=== PATIENT | male | born 1955 | race African-American/Black ===

== ENCOUNTER 2017-04-15 01:39 | Emergency (ER) | payer OTHER ==
[~2017-04-15] VITALS: Ht 172.7 cm; Wt 82.0 kg
[2017-04-15] MEDS ORDERED: SODIUM CHLORIDE 0.9% 1,000 ML IV ONE (06:05)
[2017-04-15 06:50] LABS: BASOPHILS % 0.2 % (0.0-2.0); EOSINOPHILS % 0.1 % (0.0-5.0); HEMATOCRIT. 42.1 % (42.0-52.0); HEMOGLOBIN. 14.5 g/dL (14.0-18.0); LYMPHOCYTES % 17.7 % (20.0-50.0); MEAN CORPUSCULAR HEMOGLOBIN 30.7 pg (28.0-32.0); MEAN CORPUSCULAR VOLUME 88.8 fL (80.0-94.0); MEAN PLATELET VOLUME 8.4 fl (7.4-10.4); MONOCYTES % 6.6 % (2.0-8.0); NEUTROPHILS % 75.4 % (40.0-76.0); PLATELET 181 x1000/uL (130-400); RED BLOOD CELL COUNT 4.74 mill/uL (4.7-6.1); RED CELL DISTRIBUTION WIDTH 13.5 % (11.6-14.6)
[2017-04-15 07:08] LABS: CARBON DIOXIDE 30 mEq/L (21-32); CHLORIDE 103 mEq/L (98-107)
[2017-04-15 07:09] LABS: ETHANOL BLOOD 344 mg/dL
[2017-04-15] MEDS ORDERED: CALCIUM GLUCONATE 100MG/ML 10ML VIAL IV ONE (08:00)
[2017-04-15] MEDS ORDERED: CALCIUM GLUCONATE 1000 MG in DEXTROSE 5% WATER 100 ML IV SCH (08:45)
[2017-04-15 10:55] VITALS: BP 118/69
== END 2017-04-15 10:57 | disposition home or self-care (01) ==
LOC: ER 01:39
DX: F10.129 Alcohol abuse with intoxication, unspecified (principal); Y90.8 Blood alcohol level of 240 mg/100 ml or more; E11.9 Type 2 diabetes mellitus without complications; E78.00 Pure hypercholesterolemia, unspecified
CPT/HCPCS: 36415; 80053; 83735; 85025; 96361; 96365; 99284; G0482; J0610; J7030; J7060

== ENCOUNTER 2025-01-05 05:14 | Emergency (ER) | payer OTHER, MEDICAID ==
[~2025-01-05] VITALS: Ht 152.4 cm; Wt 68.0 kg
[2025-01-05 05:23] VITALS: O2SAT 100
[2025-01-05] MEDS: SODIUM CHLORIDE 0.9% (SEPSIS BOLUS) IV ONE (05:56)
[2025-01-05] MEDS: PIPERACILLIN/TAZO 3.375G/50ML 50 ML IV ONE (06:01)
[2025-01-05] MEDS: MORPHINE SULFATE 4 MG/ML INJ (FOR IV/IM USE) IV ONE (06:01)
[2025-01-05 06:06] LABS: BASOPHILS % 0.4 % (0.0-2.0); EOSINOPHILS % 1.5 % (0.0-5.0); HEMATOCRIT. 30.3 % (42.0-52.0); HEMOGLOBIN. 10.5 g/dL (14.0-18.0); MEAN CORPUSCULAR HEMOGLOBIN 30.6 pg (28.0-32.0); MEAN CORPUSCULAR HGB CONC 34.6 g/dL (31.0-37.0); MEAN CORPUSCULAR VOLUME 88.4 fL (80.0-94.0); MEAN PLATELET VOLUME 7.4 fl (7.4-10.4); MONOCYTES % 6.5 % (2.0-8.0); NEUTROPHILS % 79.6 % (40.0-76.0); PLATELET 265 x1000/uL (130-400); RED BLOOD CELL COUNT 3.43 mill/uL (4.7-6.1); RED CELL DISTRIBUTION WIDTH 13.1 % (11.6-14.6); WHITE BLOOD COUNT 5.3 x1000/uL (4.5-11.0)
[2025-01-05 06:16] LABS: CHLORIDE 97 mEq/L (98-107); POTASSIUM 3.4 mEq/L (3.5-5.1); SODIUM 136 mEq/L (136-145)
[2025-01-05 06:17] LABS: CALCIUM 9.7 mg/dL (8.7-10.4); CARBON DIOXIDE 38 mEq/L (21-32); PROTHROMBIN TIME 10.8 sec (9.6-11.0)
[2025-01-05 06:22] LABS: CREATININE 0.9 mg/dL (0.6-1.3); GLUCOSE 99 mg/dL (70-105); UREA NITROGEN BLOOD 18 mg/dL (9-23)
[2025-01-05] MEDS: VANCOMYCIN 1G PREMIX 200 ML IV ONE (06:25)
[2025-01-05 07:32] LABS: CLARITY URINE CLEAR (CLEAR); COLOR URINE YELLOW (YELLOW); GLUCOSE URINE NEGATIVE (NEGATIVE); KETONES URINE NEGATIVE (NEGATIVE); LEUKOCYTE ESTERASE URINE NEGATIVE (NEGATIVE); NITRITE URINE NEGATIVE (NEGATIVE); OCCULT BLOOD URINE NEGATIVE (NEGATIVE); PROTEIN URINE TRACE (NEGATIVE); SPECIFIC GRAVITY URINE 1.014 (1.005-1.030); UROBILINOGEN URINE 0.2 E.U./dL (0.2-1.0)
[2025-01-05 08:31] LABS: BACTERIA URINE NONE SEEN; HYALINE CASTS URINE 0-5 /lpf; RBC URINE 0-2 /hpf (0-2); SQUAMOUS EPITHELIAL CELL URINE 1+ /lpf (RARE/1+); WBC URINE 0-2 /hpf (0-2); YEAST URINE NONE SEEN
[2025-01-05 08:39] LABS: BG BASE EXCESS 6.6 mmol/L (-2.0-3.0); BG CARBOXYHEMOGLOBIN 0.3 % (0.5-1.5); BG DEOXYHEMOGLOBIN 3.8 % (0.0-5.0); BG FRACTION INSPIRED OXYGEN 21; BG HCO3 ACT 31.9 mmol/L (21.0-28.0); BG METHEMOGLOBIN 0.1 % (0.5-1.5); BG OXYGEN SATURATION 96.2 % (94.0-98.0); BG OXYHEMOGLOBIN 95.8 % (94.0-98.0); BG PH 7.423 (7.350-7.450); BG PO2 87.5 mmHg (83.0-108.0); BG SAMPLE SITE RIGHT RADIAL; BG TOTAL HEMOGLOBIN 9.6 g/dL (13.5-17.5); BG VENT MODE ROOM AIR
[2025-01-05 10:50] VITALS: BP 123/70; PULSE 89; RESP 10; TEMP 37.1; O2SAT 94
== END 2025-01-05 10:51 | disposition left against medical advice (07) ==
LOC: ER 05:14 → EDBEDREQ 10:19 → EDBEDREQTM 10:19 → ER 10:51
DX: A41.9 Sepsis, unspecified organism (principal); R65.20 Severe sepsis without septic shock; E78.00 Pure hypercholesterolemia, unspecified; E11.9 Type 2 diabetes mellitus without complications; I10 Essential (primary) hypertension; Z79.899 Other long term (current) drug therapy
CPT/HCPCS: 99291; 96365; 96367; 96366; 96375; 80048; 81003; 83605; 85025; 85610; 87040; 87086; 36415; 84145; 71045; 82805; 82375; 93005; 36600; J2543; J3370; J2270; J7030